=== PATIENT | female | born 1950 | race Caucasian/White ===

== ENCOUNTER 2020-12-15 12:47 | Observation (INO) | payer MEDICARE, SELFPAY ==
[2020-12-15] VITALS (10 sets, daily range): BP systolic 103–155; BP diastolic 62–78; PULSE 73–98; RESP 16–20; TEMP 36.5–37.4; O2SAT 97–100; BMI 22.1; BMI 24.5
--- NOTE | ~2020-12-15 | US_ITS ---
EXAMINATION: US carotid duplex BI EXAM DATE: 12/16/2020 10:22 INDICATION: Transient confusion yesterday. TECHNIQUE: Grayscale, color and pulsed Doppler images of the cervical carotid arteries were obtained . The degree of vessel stenosis is placed in one of the following categories: normal, <50% stenosis, 50-69% stenosis, >=70% stenosis but less than near-occlusion, near-occlusion, or occlusion. Note that percent stenosis relative to normal distal artery lumen diameter is indirectly measured from velocit y measurements as described by Westley, et al. Radiology 2003; 229:340-346. There is no prior study fo r comparison. FINDINGS: RIGHT SIDE: Right common carotid artery peak systolic velocity (PSV in cm/s): 113 Right bulb/internal carotid artery peak systolic velocity (PSV in cm/s): 112 Right internal carotid artery end diastolic velocity (EDV in cm/s): 43 Right ICA/CCA peak systolic ratio: 1.0 Right external carotid artery peak systolic velocity (PSV in cm/s): 81 Right vertebral artery antegrade flow: yes There is mild carotid bulb plaque. Velocity and Doppler waveforms in the common and internal carotid arteries is normal. LEFT SIDE: Left common carotid artery peak systolic velocity (PSV in cm/s): 99 Left bulb/internal carotid artery peak systolic velocity (PSV in cm/s): 98 Left internal carotid artery end diastolic velocity (EDV in cm/s): 32 Left ICA/CCA peak systolic ratio: 1.0 Left external carotid artery peak systolic velocity (PSV in cm/s): 93 Left vertebral artery antegrade flow: yes There is mild carotid bulb plaque. Velocity and Doppler waveforms in the common and internal carotid arteries is normal. IMPRESSION: 1. Less than 50 percent stenosis in the right internal carotid artery. 2. Less than 50 percent stenosis in the left internal carotid artery. Reviewed, dictated and finalized at location A.
--- NOTE | ~2020-12-15 | MR_ITS ---
EXAMINATION: MR brain/brain stem wo/w con EXAM DATE: 12/16/2020 10:12 INDICATION: Amnesia, confusion. TECHNIQUE: Magnetic resonance imaging (MRI) of the brain/brain stem obtained without contrast. Sagit haim T1, axial diffusion, gradient echo (T2*), T1, T2, FLAIR sequences obtained. Patient was then inj ected with 13 cc intravenous Multihance contrast. Axial and coronal postcontrast T1 weighted sequence s obtained. Comparison is made to prior examination from 12/15/2020. FINDINGS: There are no areas of restricted diffusion to suggest acute infarction. There is no acute hemorrhage seen on the T2*, a hemosiderin sensitive sequence. No intraparenchymal brain mass lesion. There is mild periventricular and subcortical T2/FLAIR signal hyperintensity, nonspecific but probab ly related to small vessel ischemic disease (microangiopathy). There are no extra-axial collections . Flow voids are seen in the cerebral arteries on the T2-weighted sequences consistent with their ex pected patency. The orbits are unremarkable. Soft tissue is unremarkable. There are no areas of ab normal enhancement on the postcontrast images. IMPRESSION: 1. No acute intracranial findings. 2. Mild microangiopathy. Reviewed, dictated and finalized at location A.
--- NOTE | ~2020-12-15 | CT_ITS ---
EXAMINATION: CT brain wo con EXAM DATE: 12/15/2020 13:43 INDICATION: Confusion . TECHNIQUE: Spiral CT of the head was performed without contrast. Axial, coronal and sagittal images were reviewed. The dose-length product (DLP) for this examination was 605.33 mGy-cm. The exposure w as tailored according to patient size, and iterative reconstruction (ASIR) was used as additional dos e reduction technique. There is no prior study for comparison. FINDINGS: There is no acute intraparenchymal hemorrhage. No evidence of intraparenchymal brain mass lesion. No evidence of acute infarction. There is no mass effect or midline shift. The ventricles are normal in size. There are no extra-axial collections. There are no acute calvarial fractures. P atzackary has had bilateral ocular lens surgery. Soft tissue is unremarkable. The visualized sinuses a nd mastoid air cells are well aerated. IMPRESSION: 1. No acute intracranial findings. Reviewed, dictated and finalized at location A.
--- NOTE | 2020-12-15 12:48 | ECG_ITS ---
Measurements Intervals [place] Rate: 82 P: 58 [place]: 157 QRS: -49 QRSD: 101 T: 48 QT: 337 QTc: 395 Interpretive Statements SINUS RHYTHM LEFT ANTERIOR FASCICULAR BLOCK ABNORMAL ECG Electronically Signed On 12-15-2020 17:49:00 CDT by Gino Calderon D.O.
--- NOTE | 2020-12-15 13:17 | ED.AMS ---
HPI - Altered Mental Status General Chief Complaint: Altered Mental Status Stated Complaint: confusion Time Seen by Provider: 12/15/20 12:58 Source: patient Limitations: no limitations History of Present Illness HPI narrative: Patient 70 years old white female brought to the emergency room by her granddaughter who is telling me that they were sitting talking together as usual suddenly patient started getting confused asking the same question again and again, does not remember what happened in the last few days,. Patient denies any tingling, numbness or focal weakness or headache. The granddaughter and patient denies that the patient had history of similar symptoms. History of hypertension, hypothyroidism. The granddaughter is telling me that patient had quite a bit of stress lately, she been taking care of 2 young grandkids and dog because everybody went to vacation. Currently patient feeling anxious and nervous. Patient does not smoke or drink or uses drugs Related Data Home Medications Medication Instructions Recorded Confirmed calcium carbonate 600 mg (1,500 cap PO 06/28/19 mg)-vitamin D3 500 unit capsule cetirizine 10 mg tablet 5 mg PO DAILY PRN 06/28/19 cholecalciferol (vitamin D3) 100 4,000 unit PO DAILY 06/28/19 mcg (4,000 unit) capsule fluticasone propionate 50 2 spray NASAL DAILY 06/28/19 mcg/actuation nasal spray,suspension multivitamin with [id number] tablet PO 06/28/19 400 mcg-120 mg tablet Allergies Allergy/AdvReac Type Severity Reaction Status Date / Time NSAIDS (Non-Steroidal Allergy Unknown Unknown Verified 12/15/20 12:52 Anti-Inflamma montelukast AdvReac Dizziness Verified 12/15/20 12:52 Review of Systems Review of Systems: Narrative: CONSTITUTIONAL: Denies fever, chills, or sweats. EYES: Denies visual changes, redness, or discharge. ENT: Denies rhinorrhea, congestion, sore throat, or otalgia. CARDIOVASCULAR: Denies chest pain, palpitations, or edema. RESPIRATORY: Denies cough or dyspnea. GASTROINTESTINAL: Denies abdominal pain, nausea, vomiting, or diarrhea. GENITOURINARY: Denies dysuria or hematuria. SKIN: Denies rash or itching. MUSCULOSKELETAL: Denies back pain, joint pain, or myalgia. NEUROLOGIC: Denies headache, numbness, or weakness. PSYCHIATRIC: Denies anxiety or depression. [facility] Surgical History Surgical History Cystocele History of D&C Status post cataract extraction Status post hysterectomy with oophorectomy Family History Family History Mother Family history of Parkinson's disease Family history of Alzheimer's disease Father Family history of coronary artery disease Other Family history of multiple sclerosis Social History Social History Smoking status: Never smoker Tobacco type: cigarettes Second hand tobacco smoke exposure: No Alcohol intake: never Substance use: never Substance use type: does not use Gender identity (if verbalized by the patient): Female Exam Narrative: Exam Narrative: General appearance: Well-developed, well-nourished Skin: Normal color Head: Normocephalic, nontraumatic Eyes: Clear conjunctiva ENT: Oropharynx normal, ears normal, nose normal Neck: Supple, nontender Chest and respiratory: Airway patent, no respiratory distress, no accessory muscle use Heart: Regular rate/rhythm Abdomen: Soft, nontender, no organomegaly, quiet bowel sounds Vascular: Normal peripheral pulses, normal capillary refill. Musculoskeletal: Normal range of motion, nontender back Neurologic: Alert and oriented to her name and age only.
[2020-12-15 13:24] LABS: Basophils Absolute Auto 0.1 K/mm3 (0.0-0.1); Basophils Percent Auto 0.7 % (0.2-1.2); Eosinophils Absolute Auto 0.1 K/mm3 (0-0.3); Eosinophils Percent Auto 1.7 % (0-4.4); Hematocrit 42.8 % (37.0-47.0); Hemoglobin 14.2 g/dL (12.0-15.0); Immature Granulocyte Absolute 0.01 K/mm3 (0.00-0.031); Immature Granulocyte Percent A 0.1 % (0-0.5); Lymphocytes Absolute Auto 2.03 K/mm3 (0.9-3.2); Lymphocytes Percent Auto 28.5 % (18.3-44.2); Mean Corpuscular HGB Conc 33.2 g/dl (32-36); Mean Corpuscular Hemoglobin 30.9 pg (26-34); Mean Corpuscular Volume 93.2 fl (80-100); Monocytes Absolute Auto 0.7 K/mm3 (0.1-0.6); Monocytes Percent Auto 10.4 % (2.6-8.5); Neutrophils Absolute Auto 4.2 K/mm3 (1.3-6.7); Neutrophils Percent Auto 58.6 % (45.5-73.1); Platelet Count Result 267 k/mm3 (150-375); Red Blood Count 4.59 M/mm3 (4.2-5.4); Red Cell Distribution Width 13.2 % (11.5-14.5); White Blood Count 7.1 K/mm3 (4.5-10.0)
[2020-12-15 13:27] LABS: Add Urine Microscopic? YES; Appearance Urine Cloudy (Clear); Bilirubin Urine Negative (Negative); Blood Urine Negative (Negative); Color Urine Amber (Yellow); Glucose Urine UA Negative (Negative); Ketones Urine Trace mg/dL (Negative); Leukocyte Esterase Ur Negative LEU/UL (Negative); Nitrate Urine Negative (Negative); Protein Urine Negative (Negative); RBC Urine 0-2 /hpf (0-2); Specific Grav Ur 1.015 (1.001-1.035); Squamous Epithelial Cell Urine Rare /hpf (Few); Urobilinogen Urine Negative mg/dL (<2.0); WBC Urine 0-3 /hpf
[2020-12-15 13:41] LABS: Alanine Aminotransferase 20 U/L (4-35); Albumin Level 4.6 g/dL (3.5-5.1); Alkaline Phosphatase 75 U/L (38-126); Anion Gap 9 mmol/L (8-16); Aspartate Amino Transferase 33 U/L (14-36); Bilirubin,Total 0.5 mg/dL (0.2-1.3); Blood Urea Nitrogen 20 mg/dL (7-17); Calcium 9.7 mg/dL (8.4-10.2); Carbon Dioxide 26 mmol/L (22-30); Chloride 100 mmol/L (98-107); Estimated CRCL calculation 56 ml/min; Estimated Glomerular Filt Rate > 60; Glucose 96 mg/dL (65-105); Potassium 3.8 mmol/L (3.4-5.0); Sodium 135 mmol/L (137-145)
--- NOTE | 2020-12-15 13:43 | PC.NURSE ---
Called Sepideh oquendo, added on TSH [id number]
[2020-12-15 14:32] LABS: Amphetamine Screen Urine Negative (Negative); Barbiturate Screen Urine Negative (Negative); Benzodiazepines Screen Urine Negative (Negative); Cannabinoid Screen Urine Negative (Negative); Cocaine Screen Urine Negative (Negative); Methadone Screen Urine Negative (Negative); Opiate Screen Urine Negative (Negative); Phencyclidine Screen Urine Negative (Negative)
--- NOTE | 2020-12-15 15:31 | PC.NURSE ---
called lab and spoke with Lorena to add on TSH at 1530
--- NOTE | 2020-12-15 17:53 | PC.NURSE ---
This patient, Tati Curry, was admitted to [address] [place] [address] Room 305-01. Patient/family oriented to hospital policies and general routines including ID bracelet, bed and alarms, visiting hours, pain management, procedures, bathroom and other care routines, personal items, smoking policy, room service/diet, and visiting hours. Information on how to activate the Rapid Response Team has been discussed. Patient/Family are encouraged to report perceived risks to care and to ask questions if they do not understand what they are told or what they should do.
--- NOTE | 2020-12-15 21:58 | PM.IMHP ---
H&P: HPI History of Present Illness Date/Time: 12/15/20 21:58 this is a 70-year-old female patient who has no medical history. The patient had been under lot of stress lately. She recently went on a vacation and had to cut her vacation short because she has severe allergy. She had severe eye irritation. She recently had to watch her 2 grandchildren who are 8 and 6 years old. The granddaughter that is with her today(20-year-old) typically lives with her. However the 20-year-old granddaughter had been on vacation for couple days and just came back the last 2 days. The granddaughter noticed that Tati was not acting like her normal self. The patient had been drinking [employer] the last 2 days and thought that maybe that had something to do with that. The patient cannot recall what happened while she was watching the 2 little girls and she keeps repeating herself. This happen all of a sudden today. The patient stated she felt like she has been under lot of stress recently. The patient does not have any focal weakness no facial droop or any slurred speech. She denies having any difficulty swallowing. The patient fears that she may be developing dementia. The patient tells me that she does not have any medical problems and she is not on any medications however I did review her medication list it looks like she possibly has high blood pressure and hypothyroidism. Her labs are unremarkable her and her head CT was read as no acute intracranial finding. The granddaughter that that the bedside stated that her mother was getting better than what she was earlier today. The patient had a conversation with the granddaughter earlier this morning and the patient could not recall what they were talking about and does not remember anything over the last couple days. The patient is being admitted to observation status on the date of service of 12/15/2020 Chief Complaint: Amnesia Review of Systems Review of Systems: All systems reviewed & are unremarkable except as noted in HPI and below Constitutional: Constitutional: Reports as per HPI and Reports no additional constitutional complaints Eyes: Eyes: Reports as per HPI and Reports no additional eye complaints ENT: Reports system reviewed and no additional complaints, except as documented and Reports Normal hearing present Cardiovascular: Cardiovascular: Reports no additional cardiovascular complaints Respiratory: Respiratory: Reports no additional respiratory complaints and Reports no additional respiratory complaints Gastrointestinal: Gastrointestinal: Reports as per HPI and Reports no additional gastrointestinal complaints Musculoskeletal: Musculoskeletal: Reports no additional musculoskeletal complaints Integumentary/Breasts: Skin/Breast: Reports system reviewed and no additional complaints, except as docu and Reports as per HPI Neurologic: Reports system reviewed and no additional complaints, except as documented, Reports as per HPI and Reports Normal hearing present Psychiatric: Psychiatric: Reports no additional psychiatric complaints and Reports as per HPI Endocrine: Endocrine: Reports no additional endocrine complaints Hematologic/Lymphatic: Hematologic/Lymphatic: Reports no additional hematologic/lymphatic complaints Allergic/Immunologic: Allergic/Immunologic: Reports no additional allergic/immunologic complaints [facility] Past Medical History Medical History (Updated 12/15/20 @ 22:23 by Kareen Shetty NP) HLD (hyperlipidemia) Hypothyroidism Seasonal allergies Surgical History Surgical History (Updated 12/15/20 @ 22:08 by Kareen Shetty NP) Cystocele History of D&C Multiple Status post cataract extraction Multiple surgeries to her eyes with loss of 30% peripheral vision on the left eye Status post hysterectomy with oophorectomy Family History Family History (Updated 12/15/20 @ 22:13 by Kareen Shetty NP) Mother Family history of Parkinson's disease Family history
[2020-12-15] MEDS: PILOCARPINE HCL 2% OP SOLN 15 ML BTL 1 DROP EACH EYE (23:29)
[2020-12-15] MEDS: ACETAMINOPHEN 325 MG TABLET 650 MG PO (23:29)
[2020-12-16] VITALS (9 sets, daily range): BP systolic 90–124; BP diastolic 56–71; PULSE 57–82; RESP 16–18; TEMP 36.3–36.6; O2SAT 97–98
[2020-12-16] MEDS: LEVOTHYROXINE SODIUM 75 MCG TABLET BY MOUTH (06:02)
[2020-12-16 06:25] LABS: Basophils Percent Auto 0.6 % (0.2-1.2); Eosinophils Absolute Auto 0.2 K/mm3 (0-0.3); Eosinophils Percent Auto 2.1 % (0-4.4); Hematocrit 38.9 % (37.0-47.0); Immature Granulocyte Absolute 0.01 K/mm3 (0.00-0.031); Immature Granulocyte Percent A 0.1 % (0-0.5); Lymphocytes Absolute Auto 2.28 K/mm3 (0.9-3.2); Lymphocytes Percent Auto 32.4 % (18.3-44.2); Mean Corpuscular HGB Conc 33.4 g/dl (32-36); Mean Corpuscular Hemoglobin 30.5 pg (26-34); Mean Corpuscular Volume 91.3 fl (80-100); Mean Platelet Volume 9.9 fl (7.4-10.4); Monocytes Absolute Auto 0.7 K/mm3 (0.1-0.6); Monocytes Percent Auto 9.9 % (2.6-8.5); Neutrophils Absolute Auto 3.9 K/mm3 (1.3-6.7); Neutrophils Percent Auto 54.9 % (45.5-73.1); Platelet Count Result 241 k/mm3 (150-375); Red Blood Count 4.26 M/mm3 (4.2-5.4); Red Cell Distribution Width 13.2 % (11.5-14.5)
[2020-12-16 06:39] LABS: Alanine Aminotransferase 17 U/L (4-35); Albumin Level 4.1 g/dL (3.5-5.1); Alkaline Phosphatase 56 U/L (38-126); Anion Gap 7 mmol/L (8-16); Aspartate Amino Transferase 30 U/L (14-36); Bilirubin,Total 0.5 mg/dL (0.2-1.3); Blood Urea Nitrogen 18 mg/dL (7-17); Calcium 9.5 mg/dL (8.4-10.2); Carbon Dioxide 28 mmol/L (22-30); Chloride 107 mmol/L (98-107); Estimated CRCL calculation 56 ml/min; Estimated Glomerular Filt Rate > 60; Glucose 97 mg/dL (65-105); Magnesium 2.1 mg/dL (1.6-2.3); Potassium 3.9 mmol/L (3.4-5.0); Sodium 142 mmol/L (137-145)
[2020-12-16] MEDS: THERAPEUTIC MULTIVITAMINS/MINERALS TAB (*BKC) 1 TABLET PO (08:50)
[2020-12-16] MEDS: CLOPIDOGREL BISULFATE 75 MG TABLET PO (08:50)
[2020-12-16] MEDS: FLUTICASONE PROPIONATE 0.05% NA SPR 16 GM BTL (*BKC) 2 SPRAY NASAL (08:50)
[2020-12-16] MEDS: CHOLECALCIFEROL 1,000 UNITS TABLET 4000 UNITS PO (08:51)
[2020-12-16] MEDS: lisinopriL 20 MG TABLET PO (08:51)
[2020-12-16] MEDS: PILOCARPINE HCL 2% OP SOLN 15 ML BTL 1 DROP EACH EYE ×2 (08:51→20:44)
--- NOTE | 2020-12-16 15:54 | PM.IMPN ---
Progress Note: A&P Assessment and Plan (1) TGA (transient global amnesia): Code(s): G45.4 - Transient global amnesia Status: Acute Assessment and Plan: The patient has amnesia about some the events that occurred over the last couple days. Being working up for early dementia. AWaiting MRI scan. (2) Essential (primary) hypertension: Code(s): I10 - Essential (primary) hypertension Status: Chronic Assessment and Plan: Continue with her quinapril. (3) Hypothyroidism: Code(s): E03.9 - Hypothyroidism, unspecified Status: Chronic Assessment and Plan: Check thyroid level continue with her levothyroxine. (4) HLD (hyperlipidemia): Code(s): E78.5 - Hyperlipidemia, unspecified Status: Chronic Assessment and Plan: Continue with her home medication. (5) Seasonal allergies: Code(s): J30.2 - Other seasonal allergic rhinitis Status: Chronic Assessment and Plan: Continue with home medication. Subjective Date/time seen: 12/16/20 15:54 Interval history: 70-year-old female patient who has no medical history. The patient had been under lot of stress lately. She recently went on a vacation and had to cut her vacation short because she has severe allergy. She had severe eye irritation. She recently had to watch her 2 grandchildren who are 8 and 6 years old. Pt is being worked up for amnesia, awaiting MRI. Review of Systems Review of Systems: All systems reviewed & are unremarkable except as noted in HPI and below Exam Const: General: cooperative, healthy appearing, comfortable, no acute distress, well developed, alert, awake and Physically active Nutritional Appearance: average body habitus and well nourished Orientation/consciousness: oriented to person, oriented to place, oriented to time and patient oriented x3 Limitations: no limitations Chest: Chest palpation & inspection: normal inspection of the chest Resp: Effort & Inspection: normal respiratory effort Auscultation: clear to auscultation bilaterally Percussion: percussion normal Cardio: Palpation: normal PMI Rate: regular rate Rhythm: regular rhythm Heart sounds: S1 normal heart sound present and S2 normal heart sound present Peripheral pulses: Peripheral pulses 2+ throughout Skin: General skin exam: normal color Lesions: no lesions Rashes: no rashes Trauma: no lacerations or abrasions Wounds: no wounds Hair: normal Nails: normal Extrem: General: normal to inspection Right upper extremity: normal to inspection Left upper extremity: normal to inspection Right lower extremity: normal to inspection Left lower extremity: normal to inspection Objective Data Vital Signs Vital Signs: Vital Signs - 24 hr 12/15/20 16:10 12/15/20 17:11 12/15/20 17:20 Temperature 37.4 C Pulse Rate 86 77 81 Respiratory Rate 20 20 16 Blood Pressure 120/70 112/66 120/66 Pulse Oximetry 98 99 99 12/15/20 18:38 12/15/20 20:00 12/15/20 22:00 Temperature 36.5 C Pulse Rate 81 98 73 Respiratory Rate 16 16 Blood Pressure 103/62 Pulse Oximetry 99 97 12/16/20 00:00 12/16/20 04:00 12/16/20 06:00 Temperature 36.3 C L Pulse Rate 72 69 75 Respiratory Rate 16 Blood Pressure 124/69 Pulse Oximetry 98 12/16/20 08:00 12/16/20 14:00 Temperature 36.3 C L Pulse Rate 75 82 Respiratory Rate 16 16 Blood Pressure 90/56 L Pulse Oximetry 98 98 Intake/Output Intake/Output: Intake & Output 12/13/20 12/14/20 12/15/20 12/16/20 23:59 23:59 23:59 23:59 Intake Total 490 480 Output Total 700 Balance 490 -220 Meds/Results Medications: Active Medications Generic Name Dose Route Start Last Admin Trade Name Freq PRN Reason Stop Dose Admin Acetaminophen 650 mg 12/15/20 22:00 12/16/20 08:50 Acetaminophen 325 Mg Tablet PO Not Given Q12HR OLAMIDE Artificial Tears 1 drop 12/15/20 21:59 Artificial Tears Op Soln 15 Ml Bottle EACH EYE BID PRN E
[2020-12-16] MEDS: ACETAMINOPHEN 325 MG TABLET 650 MG PO (20:44)
[2020-12-17] VITALS: PULSE 66
--- NOTE | 2020-12-17 | ECHO_ITS ---
Patient Info Name: Tati Curry Age: 70 years : 1950 Gender: Female Ht: 64 in Wt: 143 lbs BSA: 1.72 m2 HR: 82 bpm BP: 102 / 56 mmHg Technical Quality: Good Exam Date: 12/17/2020 1:54 PM Exam Location: [facility] Pulmonary Exam Room: 305 Patient Status: Outpatient Admit Date: 12/15/2020 Staff Ordering Physician: Kareen Shetty NP Testing And Regulating Technician: Ailyn Fitzgerald RCS Attending Provider: Daniela Viveros MD Referring Physician: Sena ARMENTA; Exam Type: CA echo doppler color flow Study Info Indications - confusion Complete two-dimensional, color flow and Doppler transthoracic echocardiogram is performed. Summary 1. Complete two-dimensional, color flow and Doppler transthoracic echocardiogram is performed. 2. Left ventricular chamber dimension is normal. 3. Left ventricular systolic function is normal, estimated at 60-65%. 4. The left ventricular diastolic function is grade I diastolic dysfunction. 5. E/e' 6 is not elevated. 6. There is trace tricuspid valve regurgitation. 7. No pulmonary hypertension, estimated pulmonary arterial systolic pressure is 31 mmHg. Left Ventricle E/e' 6 is not elevated. Left ventricular chamber dimension is normal. Left ventricular systolic function is normal, estimated at 60-65%. The left ventricular diastolic function is grade I diastolic dysfunction. Right Ventricle Right ventricular chamber dimension is normal. Right ventricular systolic function is normal. Left Atria Left atrial chamber dimension is normal. Right Atria Right atrial chamber dimension is normal. Aortic Valve The aortic valve is trileaflet. There is no aortic valve stenosis. There is no aortic valve regurgitation. Pulmonic Valve There is no pulmonic regurgitation. Mitral Valve There is no mitral valve stenosis. There is no mitral valve regurgitation. Tricuspid Valve There is trace tricuspid valve regurgitation. No pulmonary hypertension, estimated pulmonary arterial systolic pressure is 31 mmHg. Pericardium/Pleural There is no pericardial effusion. Inferior Vena Cava Normal inferior vena cava with >50% collapse upon inspiration consistent with normal right atrial pressure, 5 mmHg. Aorta The aortic root size at the sinus of Valsalva is normal. Left Ventricular Outflow Tract Name Value Normal LVOT 2D LVOT Diameter 2.0 cm LVOT Doppler LVOT Peak Gradient 5 mmHg LVOT Mean Gradient 3 mmHg LVOT VTI 23 cm LVOT VTI/AV VTI Ratio 0.9 LVOT Stroke Volume 74 ml LVOT CO 15.2 l/min LVOT CI 8.8 l/min/m2 Pulmonic Valve Name Value Normal PV Doppler PV Peak Gradient 2 mmHg Mi
[2020-12-17 04:00] VITALS: PULSE 60
[2020-12-17 05:32] VITALS: BP 102/56; PULSE 58; RESP 18; TEMP 36.3; O2SAT 98
[2020-12-17] MEDS: LEVOTHYROXINE SODIUM 75 MCG TABLET BY MOUTH (05:32)
[2020-12-17 08:00] VITALS: PULSE 79
[2020-12-17] MEDS: CHOLECALCIFEROL 1,000 UNITS TABLET 4000 UNITS PO (08:07)
[2020-12-17] MEDS: THERAPEUTIC MULTIVITAMINS/MINERALS TAB (*BKC) 1 TABLET PO (08:08)
[2020-12-17] MEDS: CLOPIDOGREL BISULFATE 75 MG TABLET PO (08:08)
[2020-12-17] MEDS: lisinopriL 20 MG TABLET PO (08:08)
[2020-12-17] MEDS: FLUTICASONE PROPIONATE 0.05% NA SPR 16 GM BTL (*BKC) 2 SPRAY NASAL (08:08)
[2020-12-17] MEDS: PILOCARPINE HCL 2% OP SOLN 15 ML BTL 1 DROP EACH EYE (08:09)
--- NOTE | 2020-12-17 13:12 | PM.DS ---
DS: Admitting Diagnosis Admitting Diagnosis Admitting Diagnosis: Amnesia DS: Discharge Diagnosis Discharge Diagnosis (1) TGA (transient global amnesia): Code(s): G45.4 - Transient global amnesia Status: Acute Assessment and Plan: The patient has amnesia about some the events that occurred over the last couple days. Being working up for early dementia. MRI scan is negative CT head is negative, US of carotids are negative, echo is pending. one event of confusion after [employer] no other episodes pt appears well no confusion or disorientation today. Holding conversation looks well (2) Essential (primary) hypertension: Code(s): I10 - Essential (primary) hypertension Status: Chronic Assessment and Plan: Continue with her quinapril. (3) Hypothyroidism: Code(s): E03.9 - Hypothyroidism, unspecified Status: Chronic Assessment and Plan: Check thyroid level continue with her levothyroxine. (4) HLD (hyperlipidemia): Code(s): E78.5 - Hyperlipidemia, unspecified Status: Chronic Assessment and Plan: Continue with her home medication. (5) Seasonal allergies: Code(s): J30.2 - Other seasonal allergic rhinitis Status: Chronic Assessment and Plan: Continue with home medication. DS: Summary Hospital Course Hospital Course: 70-year-old female patient who has no medical history. The patient had been under lot of stress lately. She recently went on a vacation and had to cut her vacation short because she has severe allergy. She had severe eye irritation. She recently had to watch her 2 grandchildren who are 8 and 6 years old. Pt is being worked up for amnesia, MRI negative, CT head negative, US carotids are negative. Time Spent with Patient Time attestation: Total time spent providing and/or coordinating discharge services:4 minutes on day of discharge Exam Const: General: cooperative, healthy appearing, comfortable, no acute distress, well developed, alert, awake and Physically active Nutritional Appearance: average body habitus and well nourished Orientation/consciousness: oriented to person, oriented to place, oriented to time and patient oriented x3 Limitations: no limitations HENMT: Head: normal to inspection, No palpable skull fracture present, normocephalic and atraumatic Ears: hearing grossly normal bilaterally and external ears normal General nose exam: Normal external nose present and Normal nares present Eyes: General: appearance normal, both eyes and all related structures Alignment and Position: alignment normal Periorbital: periorbital findings normal Eyelids: eyelids normal Conjunctivae: conjunctivae normal Sclera: sclerae normal Cornea: corneas normal Pupils: Equal, round and reactive pupils present EOM: EOMs intact bilaterally Neck: Neck: normal visual inspection, full ROM and no lymphadenopathy Carotids: normal carotid upstroke Lymphatic: no lymphadenopathy noted Chest: Chest palpation & inspection: normal inspection of the chest Resp: Effort & Inspection: normal respiratory effort Auscultation: clear to auscultation bilaterally Percussion: percussion normal Cardio: Palpation: normal PMI Rate: regular rate Rhythm: regular rhythm Heart sounds: S1 normal heart sound present and S2 normal heart sound present Peripheral pulses: Peripheral pulses 2+ throughout GI: Inspection: normal to inspection Auscultation: normal bowel sounds Back/Spine/Pelvis: Cervical Spine: cervical ROM normal Thoracic/Lumbar Spine: thoracic and lumbar spine normal to inspection Pelvis: no pain with anterior-posterior compression Skin: General skin exam: normal color Lesions: no lesions Rashes: no rashes Trauma: no lacerations or abrasions Wounds: no wounds Hair: normal Nails: normal Neuro: General: oriented to person, oriented to place, oriented to time and patient oriented x3 Cranial nerves: Yes Equal, round and reactive pupils present C
[2020-12-17 13:18] VITALS: BP 97/47; PULSE 80; RESP 14; TEMP 37.2; O2SAT 97
== END 2020-12-17 15:00 | disposition home or self-care (01) ==
LOC: ANHED 15:34 → ANH3MEDSUR 12-16 07:13
PROVIDERS: General Practice; Nurse Practitioner; Admitting Provider Hospitalist; Emergency Provider Emergency Medicine; PCP Family Medicine; Visit Provider Family Medicine
DX: G45.4 Transient global amnesia (principal); I10 Essential (primary) hypertension; E03.9 Hypothyroidism, unspecified; I65.23 Occlusion and stenosis of bilateral carotid arteries; E78.5 Hyperlipidemia, unspecified; J30.2 Other seasonal allergic rhinitis; Z79.899 Other long term (current) drug therapy
CPT/HCPCS: 36415; 70450; 70553; 80053; 80307; 81001; 83735; 84443; 85025; 93005; 93306; 93880; 99285; A9270; A9577; G0378

== ENCOUNTER 2020-12-31 08:09 | Outpatient (CLI) | payer MEDICARE, SELFPAY ==
--- NOTE | ~2020-12-31 | MM_ITS ---
EXAMINATION: MM screening eros BI w tari HISTORY: Screening mammogram TECHNIQUE: Craniocaudal and mediolateral oblique 3-D tomosynthesis images were obtained and synthetic 2-D images were generated. CAD analysis was submitted and interpreted. COMPARISON: 12/31/2018, 12/29/2017, 12/09/2016 bilateral digital screening mammogram examinations BREAST PARENCHYMAL COMPOSITION: There are scattered areas of fibroglandular density. FINDINGS: Approximately 2.8 x 5 mm circumscribed mass is noted in the lower outer right breast (crani ocaudal Tomosynthesis image 20/64). Diagnostic right mammogram and right breast ultrasound examinatio n are recommended. Otherwise there is no evidence of suspicious mass, calcification, or architectural distortion to sugg est malignancy in either breast. There has been no other suspicious interval change. IMPRESSION: 1. 2.8 x 5 mm circumscribed lower outer right breast mass 2. Diagnostic right mammogram and right breast ultrasound examination are recommended. BI-RADS Category 0: Incomplete: Needs additional imaging evaluation. Reviewed, dictated and finalized at location A. IMPRESSION: 1. 2.8 x 5 mm circumscribed lower outer right breast mass 2. Diagnostic right mammogram and right breast ultrasound examination are recom mended. BI-RADS Category 0: Incomplete: Needs additional imaging evaluation.
== END 2020-12-31 08:10 | disposition home or self-care (01) ==
LOC: ANHIMG 08:12
PROVIDERS: PCP Family Medicine; Visit Provider Family Medicine
DX: Z12.31 Encounter for screening mammogram for malignant neoplasm of breast (principal); R92.8 Other abnormal and inconclusive findings on diagnostic imaging of breast
CPT/HCPCS: 77063; 77067

== ENCOUNTER 2021-01-31 13:42 | Outpatient (CLI) | payer MEDICARE, SELFPAY ==
--- NOTE | ~2021-01-31 | MMUS_ITS ---
EXAMINATION: MM diagnostic mammo unilat RT, US breast RT limited HISTORY: Follow-up right breast mass TECHNIQUE: Additional 3-D tomosynthesis images of the right breast were performed and synthetic 2-D i mages were generated. CAD analysis was submitted and interpreted. High resolution Limited right breas t ultrasound was performed. COMPARISON: 12/31/2020 BREAST PARENCHYMAL COMPOSITION: Breast composed of scattered areas of fibroglandular density. FINDINGS: MAMMOGRAPHIC FINDINGS: There is a persistent radiolucent mass measuring 4 mm in the upper outer quadrant of the right breast which is less dense with spot compression views, likely benign intramammary lymph node. ULTRASOUND: Limited right breast ultrasound: Normal heterogeneous echotexture. No focal mass identified. IMPRESSION: 1. Probable benign right breast mass. No sonographic correlate. 2. Recommend 6 month follow-up diagnostic right mammogram BI-RADS category 3, probably benign findings. Reviewed, dictated and finalized at location A. IMPRESSION: 1. Probable benign right breast mass. No sonographic correlate. 2. Recommend 6 month follow-up diagnostic right mammogram BI-RADS category 3, probably benign findings.
== END 2021-01-31 13:43 | disposition home or self-care (01) ==
PROVIDERS: PCP Family Medicine; Visit Provider Nurse Practitioner Family
DX: R92.8 Other abnormal and inconclusive findings on diagnostic imaging of breast (principal); N63.10 Unspecified lump in the right breast, unspecified quadrant
CPT/HCPCS: 76642; 77065

== ENCOUNTER 2021-08-30 11:00 | Outpatient (CLI) | payer MEDICARE, SELFPAY ==
--- NOTE | ~2021-08-30 | MM_ITS ---
EXAMINATION: MM diagnostic eros RT w tari HISTORY: Follow-up right breast asymmetry TECHNIQUE: Additional 3-D tomosynthesis images of the right breast were performed and synthetic 2-D i mages were generated. CAD analysis was submitted and interpreted. COMPARISON: Comparison to multiple prior studies sequentially, with oldest reviewed study dated 12/09. BREAST PARENCHYMAL COMPOSITION: Breast composed of scattered areas of fibroglandular density. FINDINGS: There are no suspicious masses, calcifications or architectural distortion in the right trevor ast to suggest malignancy. IMPRESSION: 1. Stable right mammogram without evidence for malignancy. 2. Routine yearly screening mammogram and regular clinical breast examination are recommended. BI-RADS Category 1: Negative Reviewed, dictated and finalized at location A. RTMENT CLERK IMPRESSION: 1. Stable right mammogram without evidence for malignancy. 2. Routine yearly screening mammogram and regular clinical breast examination a re recommended. BI-RADS Category 1: Negative
== END 2021-08-30 11:01 | disposition home or self-care (01) ==
PROVIDERS: PCP Family Medicine; Visit Provider Nurse Practitioner Family
DX: R92.8 Other abnormal and inconclusive findings on diagnostic imaging of breast (principal)
CPT/HCPCS: 77061; 77065; G0279

== ENCOUNTER 2021-08-30 15:11 | Outpatient (CLI) | payer MEDICARE, SELFPAY ==
--- NOTE | ~2021-08-30 | XR_ITS ---
XR facial bones min 3V DATE: 08/30/2021 15:52 INDICATION: Fall, facial injury on 08/31/2021 TECHNIQUE: clay Hurtado, lateral and submental vertical views COMPARISON: None FINDINGS: The nasal bones, anterior maxillary spine and zygomatic arches appear intact. The frontozyg omatic sutures appear normal. No orbital wall or rim fracture or other facial fracture is evident. No mandibular fracture or dislocation is detected. The paranasal sinuses are normally developed and aerated. The mastoid air cells appear normal. Normal sella turcica. Moderate degenerative change of the cervical spine. IMPRESSION: No evidence of facial fracture. Reviewed, dictated and finalized at location B. US PICKER
--- NOTE | ~2021-08-30 | XR_ITS ---
XR wrist RT min 3V DATE: 08/30/2021 15:53 INDICATION: Fall on August 21. Right wrist injury, pain TECHNIQUE: 4 views COMPARISON: None FINDINGS: Diffuse osteopenia. There is narrowing at the radiocarpal joint likely due to osteoarthritis. Degenerative benign cyst of the distal ulna. No fracture or dislocation, erosive change or chondrocalcinosis. IMPRESSION: No fracture or dislocation is detected Reviewed, dictated and finalized at location B. OGRAPHIC MACHINE OPERATOR
== END 2021-08-30 15:12 | disposition home or self-care (01) ==
LOC: ANHIMG 15:17
PROVIDERS: PCP Family Medicine; Visit Provider Physician Assistant
DX: Z91.81 History of falling (principal); R51.9 Headache, unspecified; H57.11 Ocular pain, right eye; M25.531 Pain in right wrist; M47.812 Spondylosis without myelopathy or radiculopathy, cervical region
CPT/HCPCS: 70150; 73110; 77061; 77065; G0279

== ENCOUNTER 2021-09-09 12:47 | Outpatient (CLI) | payer MEDICARE, SELFPAY ==
--- NOTE | ~2021-09-09 | CT_ITS ---
EXAMINATION: CT brain wo con, CT cervical spine wo con EXAM DATE: 09/09/2021 13:15 INDICATION: Hit right side of head on August 21. Headache and dizziness. TECHNIQUE: Spiral CT of the head was performed without contrast. Axial, coronal and sagittal images were reviewed. Spiral CT of the cervical spine was performed without contrast. Axial images were rev iewed. Coronal and sagittal reformatted images were also reviewed. The dose-length product (DLP) fo r this examination was 529.67 (accession [id number]), 101.07 (accession [id number]) mGy-cm. The exposure was tailored according to patient size, and iterative reconstruction (ASIR) was used as additional dose reduction technique. Comparison is made to prior examination from 12/15/2020. FINDINGS: HEAD CT: There is no acute intraparenchymal hemorrhage. No evidence of intraparenchymal brain mass l esion. No evidence of acute infarction. There is no mass effect or midline shift. There is no obs tructive hydrocephalus suspected. There are no extra-axial collections. There are no acute calvaria l fractures. Patient has had bilateral ocular lens surgery. Soft tissue is unremarkable. The visua lized sinuses and mastoid air cells are well aerated. CERVICAL CT: Overall moderate cervical spondylosis. There is no evidence of acute cervical fracture. The odontoid process is intact. Pre-dens space is normal. Prevertebral soft tissue is normal. The re are no soft tissue abnormalities identified. There is no disc space widening or traumatic vertebr al body subluxation suspected. A detailed level by level evaluation of spondylosis can be added as addendum if requested. IMPRESSION: 1. No acute intracranial findings or cervical fracture. 2. Moderate cervical spondylosis. Reviewed, dictated and finalized at location B. OON DIPPER IMPRESSION: 1. No acute intracranial findings or cervical fracture. 2. Moderate cervical spondylosis.
== END 2021-09-09 12:48 | disposition home or self-care (01) ==
LOC: ANHIMG 12:51
PROVIDERS: PCP Family Medicine; Visit Provider Physician Assistant
DX: S09.90XA Unspecified injury of head, initial encounter (principal); H57.11 Ocular pain, right eye; W19.XXXA Unspecified fall, initial encounter; M47.812 Spondylosis without myelopathy or radiculopathy, cervical region
CPT/HCPCS: 70450; 72125

== ENCOUNTER 2021-10-10 12:41 | Outpatient (CLI) | payer MEDICARE, SELFPAY ==
--- NOTE | ~2021-10-10 | DEXA_ITS ---
Bone Density Report Name: LACIE GARCIA Age: 71 Sex: Female Ethnicity: White Date of : 1950 Indication: osteopenia; monitoring treatment; parental hip fracture; height loss; hysterectomy; postmenopausal Referring Provider: BLAKE RAYMUNDO Study: Bone densitometry was performed. Exam Date: October 10, 2021 Accession number: [id number] Bone Density: Region BMD T-score Z-score Classification AP Spine (L1-L4) 0.758 -2.6 -0.4 Osteoporosis Femoral Neck (Left) 0.735 -1.0 0.8 Normal Total Hip (Left) 0.762 -1.5 0.1 Osteopenia Total Hip Bilateral Avg 0.767 -1.5 0.2 Osteopenia Femoral Neck (Right) 0.650 -1.8 0.1 Osteopenia Total Hip (Right) 0.771 -1.4 0.2 Osteopenia World Health Organization criteria for BMD impression classify patients as: Normal (T-score at or above -1.0), Osteopenia (T-score between -1.0 and -2.5), or Osteoporosis (T-score at or below -2.5). 10-year Fracture Risk: FRAX not reported because: Some T-score for Spine Total or Hip Total or Femoral Neck at or below -2.5 Treated for osteoporosis Previous Exams: Region Exam Age BMD T-score BMD Change BMD Change Date g/cm2 vs Baseline vs Previous AP Spine(L1-L4) 10/10/2021 71 0.758 -2.6 -0.085(-10.0%) -0.072(-8.7%)* 01/16/2018 67 0.831 -2.0 -0.012(-1.5%)# 0.015(1.8%) 12/06/2015 65 0.816 -2.1 -0.027(-3.2%)# -0.027(-3.2%)# 12/01/2013 63 0.843 -1.9 Total Hip(Left) 10/10/2021 71 0.762 -1.5 -0.142(-15.7%) -0.128(-14.3%) 01/16/2018 67 0.890 -0.4 -0.015(-1.6%)# 0.014(1.7%) 12/06/2015 65 0.875 -0.5 -0.029(-3.2%)# -0.029(-3.2%)# 12/01/2013 63 0.904 -0.3 Total Hip(Right) 10/10/2021 71 0.771 -1.4 -0.085(-9.9%)# -0.092(-10.7%) 01/16/2018 67 0.864 -0.6 0.007(0.8%)# 0.024(2.8%) 12/06/2015 65 0.840 -0.8 -0.016(-1.9%)# -0.016(-1.9%)# 12/01/2013 63 0.856 -0.7 *Denotes significance at 95% confidence level, LSC for AP Spine = 0.022 g/cm2, LSC for Total Hip = 0.027 g/cm2 Clinical Information Provided by Patient: Parent has had a hip fracture Is being treated for osteoporosis Has used the following medications: Boniva (i.e. ibandronate), Vitamin D, Calcium Has the following medical conditions: Hysterectomy Patient maximum height was 65 Menopause Age: 50 Onset of menses at age 15 Number of children 4 Impression: The patient has osteoporosis, based on the Total Spine T-score. The patient has risk factors, including: parental hip fr
== END 2021-10-10 12:42 | disposition home or self-care (01) ==
PROVIDERS: PCP Family Medicine; Visit Provider Family Medicine
DX: Z78.0 Asymptomatic menopausal state (principal); M81.0 Age-related osteoporosis without current pathological fracture; M85.89 Other specified disorders of bone density and structure, multiple sites
CPT/HCPCS: 77080

== ENCOUNTER 2022-02-06 10:34 | Outpatient (CLI) | payer MEDICARE, SELFPAY ==
--- NOTE | ~2022-02-06 | MM_ITS ---
EXAMINATION: MM screening eros BI w tari HISTORY: Screening mammogram TECHNIQUE: Craniocaudal and mediolateral oblique 3-D tomosynthesis images were obtained and synthetic 2-D images were generated. CAD analysis was submitted and interpreted. COMPARISON: 08/30/2021 diagnostic right mammogram 01/31/2021 diagnostic right mammogram and limited right breast ultrasound 12/31/2020, 12/31/2018 bilateral screening mammogram examinations BREAST PARENCHYMAL COMPOSITION: There are scattered areas of fibroglandular density. FINDINGS: There is no evidence of suspicious mass, calcification, or architectural distortion to sugg est malignancy in either breast. There has been no suspicious interval change. IMPRESSION: 1. No mammographic evidence of malignancy. 2. Recommend routine screening mammography in one year. BI-RADS Category 1: Negative Reviewed, dictated and finalized at location A.
== END 2022-02-06 10:35 | disposition home or self-care (01) ==
PROVIDERS: PCP Family Medicine; Visit Provider Family Medicine
DX: Z12.31 Encounter for screening mammogram for malignant neoplasm of breast (principal); N63.10 Unspecified lump in the right breast, unspecified quadrant
CPT/HCPCS: 77063; 77067

== ENCOUNTER 2023-04-16 07:13 | Outpatient (CLI) | payer MEDICARE, SELFPAY ==
--- NOTE | ~2023-04-16 | MM_ITS ---
EXAMINATION: MM screening eros BI w tari HISTORY: Screening mammogram TECHNIQUE: Craniocaudal and mediolateral oblique 3-D tomosynthesis images were obtained and synthetic 2-D images were generated. CAD analysis was submitted and interpreted. COMPARISON: 02/06/2022, 12/31/2020, 12/31/2018 BREAST PARENCHYMAL COMPOSITION:There are scattered areas of fibroglandular density. FINDINGS: No suspicious mass, calcification, or architectural distortion are identified in either trevor ast to suggest malignancy. There has been no suspicious interval change. IMPRESSION: No mammographic evidence of malignancy. Recommend routine screening mammography in one year. BI-RADS Category 1: Negative Reviewed, dictated and finalized at location .
== END 2023-04-16 07:14 | disposition home or self-care (01) ==
PROVIDERS: PCP Family Medicine; Visit Provider Family Medicine
DX: Z12.31 Encounter for screening mammogram for malignant neoplasm of breast (principal)
CPT/HCPCS: 77063; 77067

== ENCOUNTER → 2023-07-03 10:14 | Outpatient (CLI) | payer MEDICARE, SELFPAY ==
--- NOTE | ~2023-07-03 | XR_ITS ---
Left elbow Technique: AP, oblique, and lateral views were obtained. Clinical History: Pain Findings: No acute fracture or dislocation is seen. Osseous alignment is anatomic. Joint spaces are p reserved. There is no displacement of the fat pads, and soft tissues are unremarkable. Impression: Unremarkable radiographs. Reviewed, dictated and finalized at [facility]. RGLASS INSULATION INSTALLER Impression: Unremarkable radiographs.
== END ==
PROVIDERS: PCP Physician Assistant; Visit Provider Physician Assistant
DX: M25.522 Pain in left elbow (principal)
CPT/HCPCS: 73080

== ENCOUNTER 2023-10-16 09:17 | Outpatient (CLI) | payer MEDICARE, SELFPAY ==
--- NOTE | ~2023-10-16 | DEXA_ITS ---
Bone Density Report Name: LACIE GARCIA Age: 73 Sex: Female Ethnicity: White Date of : 1950 Indication: osteopenia; monitoring treatment; parental hip fracture; height loss; prior fracture; hysterectomy; Referring Provider: BLAKE ALBA Study: Bone densitometry was performed. Exam Date: October 16, 2023 Accession number: [id number] Bone Density: Region BMD T-score Z-score Classification AP Spine(L1-L4) 0.786 -2.4 -0.1 Osteopenia Femoral Neck (Left) 0.757 -0.8 1.2 Normal Total Hip (Left) 0.868 -0.6 1.1 Normal Femoral Neck (Right) 0.636 -1.9 0.1 Osteopenia Total Hip (Right) 0.788 -1.3 0.4 Osteopenia Total Hip Mean 0.828 -1.0 0.8 Normal World Health Organization criteria for BMD impression classify patients as: Normal (T-score at or above -1.0), Osteopenia (T-score between -1.0 and -2.5), or Osteoporosis (T-score at or below -2.5). 10-year Fracture Risk: FRAX not reported because: Treated for osteoporosis Previous Exams: Region Exam Age BMD T-score BMD Change BMD Change Date g/cm2 vs Baseline vs Previous AP Spine (L1-L4) 10/16/2023 73 0.786 -2.4 -0.057 (-6.8%) -0.031 (-3.8%) 10/16/2023 73 0.817 -2.1 -0.026 (-3.1%) 0.059 (7.8%)* 10/10/2021 71 0.758 -2.6 -0.085 (-10.0% -0.072 (-8.7%) 01/16/2018 67 0.831 -2.0 -0.012 (-1.5%) 0.015 (1.8%) 12/06/2015 65 0.816 -2.1 -0.027 (-3.2%) -0.027 (-3.2%) 12/01/2013 63 0.843 -1.9 Total Hip(Left) 10/16/2023 73 0.868 -0.6 -0.036 (-4.0%) 0.106 (14.0%)* 10/10/2021 71 0.762 -1.5 -0.142 (-15.7% -0.128 (-14.3% 01/16/2018 67 0.890 -0.4 -0.015 (-1.6%) 0.014 (1.7%) 12/06/2015 65 0.875 -0.5 -0.029 (-3.2%) -0.029 (-3.2%) 12/01/2013 63 0.904 -0.3 Total Hip(Right) 10/16/2023 73 0.788 -1.3 -0.069 (-8.0%) 0.016 (2.1%) 10/10/2021 71 0.771 -1.4 -0.085 (-9.9%) -0.092 (-10.7% 01/16/2018 67 0.864 -0.6 0.007 (0.8%)# 0.024 (2.8%) 12/06/2015 65 0.840 -0.8 -0.016 (-1.9%) -0.016 (-1.9%) 12/01/2013 63 0.856 -0.7 *Denotes significance at 95% confidence level, LSC for AP Spine = 0.022 g/cm2, LSC for Total Hip = 0.027 g/cm2 # Denotes dissimilar scan types or analysis methods Clinical Information Provided by Patient: Has had a low trauma fracture Parent has had a hip fracture Is being treated for osteoporosis Has used the following medications: Vitamin D, Calcium, BI-ANNUAL INFUSIONS Has the following medical conditions: Hysterectomy Patient maximum height was 65.5 Me
== END 2023-10-16 09:18 | disposition home or self-care (01) ==
LOC: ANHIMG 09:21
PROVIDERS: PCP Family Medicine; Visit Provider Physician Assistant
DX: M85.89 Other specified disorders of bone density and structure, multiple sites (principal); M81.0 Age-related osteoporosis without current pathological fracture
CPT/HCPCS: 77080

== ENCOUNTER 2024-01-11 07:00 | Outpatient (NON) | payer MEDICARE, SELFPAY | END 2024-01-11 07:01 | disposition home or self-care (01) | LOC: ANHLAB 01-12 07:47 | PROVIDERS: PCP Family Medicine; Visit Provider Internal Medicine Gastroenterology | DX: R19.5 Other fecal abnormalities (principal); D12.8 Benign neoplasm of rectum | CPT/HCPCS: 88305 ==

== ENCOUNTER 2024-01-11 08:39 | Day surgery (SDC) | payer MEDICARE, SELFPAY ==
[2023-09-16 10:48] VITALS: BMI 25.6
[2024-01-08 10:55] VITALS: BMI 24.2
--- NOTE | 2024-01-10 21:58 | PM.HPGS ---
History of Present Illness History of Present Illness Consent: Risks, benefits, and alternatives have been discussed and questions answered. Patient agrees to proceed with procedure. Chief complaint: Other Fecal Abnormalities Narrative: Tati Curry is a 73 year old female referred for colon cancer screening due to + Cologuard test. Review of Systems Review of Systems: All systems reviewed & are unremarkable except as noted in HPI and below PMFSH Past Medical History Medical History HLD (hyperlipidemia) Hypothyroidism Nephrolithiasis Seasonal allergies Surgical History Surgical History Cystocele History of D&C Multiple Status post cataract extraction Multiple surgeries to her eyes with loss of 30% peripheral vision on the left eye Status post hysterectomy with oophorectomy Family History Family History Mother Family history of Parkinson's disease Family history of Alzheimer's disease Father Family history of coronary artery disease Daughter Multiple sclerosis Sibling Myasthenia gravis Other Family history of multiple sclerosis Social History Social History Social History: The patient is . 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 She is a full code. She has 4 children. She is a lifelong nonsmoker. She does not use any alcohol marijuana or illicit drugs. Smoking status: Never smoker Second hand tobacco smoke exposure: No Alcohol intake: never Substance use: never Substance use type: does not use Living arrangements: alone Occupation/Education: retired Gender identity (if verbalized by the patient): Female Sexual Orientation (if Verbalized by the Patient): Straight or Heterosexual Spiritual care concerns: No Meds Home Medications and Allergies Home Medications Medication Instructions Recorded Confirmed Type calcium carbonate 600 mg-vitamin 2 cap PO DAILY 06/28/19 01/11/24 History D3 12.5 mcg (500 unit) capsule (Calcium 600 with Vitamin D3) multivitamin with [id number] 1 tablet PO DAILY 06/28/19 01/11/24 History 400 mcg-120 mg tablet (One Daily Women 50 Plus) brimonidine 0.025 % eye drops 1 drp EACH EYE BID PRN Eye 12/15/20 01/11/24 History (Lumify) Irritation pilocarpine HCl 1 % eye drops 1 drp EACH EYE BID glaucoma 12/15/20 01/11/24 History propylene glycol 0.6 % eye drops 1 drp EACH EYE BID PRN Eye 12/15/20 01/11/24 History (Systane Complete) Irritation acetaminophen 650 mg 650 mg PO Q8H PRN arthritis 10/31/21 01/11/24 History tablet,extended release atorvastatin 20 mg tablet 20 mg PO DAILY #90 tabs 01/12/23 01/11/24 Rx levothyroxine 75 mcg tablet See Rx Instructions .Route 01/12/23 01/11/24 Rx (Euthyrox) .COMPLEX #90 tabs lisinopril 30 mg tablet 30 mg PO DAILY #90 tabs 01/12/23 01/11/24 Rx Allergies Allergy/AdvReac Type Severity Reaction Status Date / Time NSAIDS (Non-Steroidal Allergy Unknown Unknown Verified 01/11/24 09:44 Anti-Inflamma gabapentin AdvReac Drowsy Verified 01/11/24 09:44 montelukast AdvReac Dizziness Verified 01/11/24 09:44 Exam Resp: Auscultation: clear to auscultation bilaterally Cardio: Rate: regular rate Rhythm: regular rhythm GI: GI Palp: Yes Soft to palpation and No Tenderness to palpation present (GI) Assessment and Plan Assessment and plan (1) Positive colorectal cancer screening using Cologuard test: Code(s): R19.5 - Other fecal abnormalities Status: Acute Assessment and Plan: Colonoscopy with possible biopsy or polypectomy or cautery or injection of substances.
[2024-01-11 09:57] VITALS: BP 118/71; PULSE 90; RESP 18; TEMP 37.6; O2SAT 100; BMI 23.9
[2024-01-11] MEDS: LACTATED RINGERS 1,000 ML 150 ML IV CONT (10:15)
--- NOTE | 2024-01-11 10:30 | WPDANESEPPF ---
Anes - Initial Pre Proc Eval Procedure: Operation Date: 01/11/24 11:00 Proposed Procedures p Diagnostic Colonoscopy - Edward Arreguin MD Date/Time: 01/11/24 10:30 Surgeon: Edward Arreguin MD Pre Op Diagnosis: Other Fecal Abnormalities Patient Data Age: 73 Gender: F Height: 1.63 m Weight: 63.3 kg Last Vital Signs Temp 37.6 C 01/11/24 09:57 Pulse 90 01/11/24 09:57 Resp 18 01/11/24 09:57 BP 118/71 01/11/24 09:57 Pulse Ox 100 01/11/24 09:57 O2 Del Method Room Air 01/11/24 09:57 Allergies Allergy/AdvReac Type Severity Reaction Status Date / Time NSAIDS (Non-Steroidal Allergy Unknown Unknown Verified 01/11/24 09:44 Anti-Inflamma gabapentin AdvReac Drowsy Verified 01/11/24 09:44 montelukast AdvReac Dizziness Verified 01/11/24 09:44 Home Medications Medication Instructions Recorded Confirmed Type calcium carbonate 600 mg-vitamin 2 cap PO DAILY 06/28/19 01/11/24 History D3 12.5 mcg (500 unit) capsule (Calcium 600 with Vitamin D3) multivitamin with [id number] 1 tablet PO DAILY 06/28/19 01/11/24 History 400 mcg-120 mg tablet (One Daily Women 50 Plus) brimonidine 0.025 % eye drops 1 drp EACH EYE BID PRN Eye 12/15/20 01/11/24 History (Lumify) Irritation pilocarpine HCl 1 % eye drops 1 drp EACH EYE BID glaucoma 12/15/20 01/11/24 History propylene glycol 0.6 % eye drops 1 drp EACH EYE BID PRN Eye 12/15/20 01/11/24 History (Systane Complete) Irritation acetaminophen 650 mg 650 mg PO Q8H PRN arthritis 10/31/21 01/11/24 History tablet,extended release atorvastatin 20 mg tablet 20 mg PO DAILY #90 tabs 01/12/23 01/11/24 Rx levothyroxine 75 mcg tablet See Rx Instructions .Route 01/12/23 01/11/24 Rx (Euthyrox) .COMPLEX #90 tabs lisinopril 30 mg tablet 30 mg PO DAILY #90 tabs 01/12/23 01/11/24 Rx Patient hx anesthesia problems: none Family hx anesthesia problems: none Results Review: All pre-operative results and documents have been reviewed as part of the pre-operative evaluation. [facility] Past Medical History Medical History HLD (hyperlipidemia) Hypothyroidism Nephrolithiasis Seasonal allergies Surgical History Surgical History Cystocele History of D&C Multiple Status post cataract extraction Multiple surgeries to her eyes with loss of 30% peripheral vision on the left eye Status post hysterectomy with oophorectomy Family History Family History Mother Family history of Parkinson's disease Family history of Alzheimer's disease Father Family history of coronary artery disease Daughter Multiple sclerosis Sibling Myasthenia gravis Other Family history of multiple sclerosis Social History Social History Social History: The patient is . 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 She is a full code. She has 4 children. She is a lifelong nonsmoker. She does not use any alcohol marijuana or illicit drugs. Smoking status: Never smoker Second hand tobacco smoke exposure: No Alcohol intake: never Substance use: never Substance use type: does not use Living arrangements: alone Occupation/Education: retired Gender identity (if verbalized by the patient): Female Sexual Orientation (if Verbalized by the Patient): Straight or Heterosexual Spiritual care concerns: No Anes - Eval Final PreProcedure Day of Procedure 01/11/24 10:30 Patient weight: normal Heart: regular rate and rhythm Lungs: clear to auscultation Airway: Mallampati scale Neurological: alert and oriented Last oral intake: >/= 8 hours ASA classification: III Emergent: no Anesthetic plan: proceed Anesthesia type and monitoring: general GIVS and standard monitoring Results Revie
[2024-01-11 11:24] VITALS: BP 104/90; PULSE 85; RESP 20; O2SAT 100
[2024-01-11 11:34] VITALS: BP 117/69; PULSE 85; RESP 20; O2SAT 100
--- NOTE | 2024-01-11 11:37 | WPDANESPN ---
Anes - Prog Note Post-Op Date/Time: 01/11/24 11:37 Cardiovascular status: normal Respiratory status: normal Airway patency: baseline Mental status: baseline Post-Op hydration status: normal Vital Signs: Last Vital Signs Temp 37.6 C 01/11/24 09:57 Pulse 85 01/11/24 11:24 Resp 20 01/11/24 11:24 BP 104/90 01/11/24 11:24 Pulse Ox 100 01/11/24 11:24 O2 Del Method Room Air 01/11/24 11:24 Pain Score (VAS): 0 I/O: Intake & Output 01/10/24 01/11/24 01/11/24 23:59 07:59 15:59 Intake Total 300 Balance 300 Patient Feedback: Patient satisfied with anesthetic care.
[2024-01-11 11:44] VITALS: BP 125/68; PULSE 79; RESP 20; O2SAT 100
== END 2024-01-11 12:05 | disposition home or self-care (01) ==
PROVIDERS: PCP Family Medicine; Visit Provider Internal Medicine Gastroenterology
PROC: 0DJD8ZZ Inspection of Lower Intestinal Tract, Via Natural or Artificial Opening Endoscopic (ICD-10-PCS; CPT 45378; principal; 2024-01-11 11:00)
DX: Z12.11 Encounter for screening for malignant neoplasm of colon (principal); K62.1 Rectal polyp
CPT/HCPCS: 45380

== ENCOUNTER 2024-08-30 08:16 | Outpatient (CLI) | payer MEDICARE, SELFPAY ==
--- NOTE | ~2024-08-30 | MM_ITS ---
EXAMINATION: MM screening [facility] BI w tari HISTORY: Screening TECHNIQUE: Craniocaudal and mediolateral oblique 3-D tomosynthesis images were obtained and synthetic 2-D images were generated. CAD analysis was submitted and interpreted. COMPARISON: Comparison to multiple prior studies sequentially, with oldest reviewed study dated 12/31. BREAST PARENCHYMAL COMPOSITION: Not dense: There are scattered areas of fibroglandular density. FINDINGS: There is no evidence of suspicious mass, calcification, or architectural distortion to sugg est malignancy in either breast. There has been no suspicious interval change. IMPRESSION: 1. No mammographic evidence of malignancy. 2. Recommend routine screening mammography in one year. BI-RADS Category 1: Negative Reviewed, dictated and finalized at location B. NCE WHEEL FACER
--- OUTSIDE RECORDS SUMMARY | 2024-08-30 08:23 | XMS_ITS | Clinical Summary ---
Author Organization [facility] [address] Address [address] [place] [address] Care Team Providers Care Sand Mixer Name Role Phone Feliciano Montiel MD Primary Care Provider Allergies No known active allergies Surgical History Surgery Date Site/Laterality Comments OTHER SURGICAL HISTORY 1982 laparoscopy/ D & C -several OTHER SURGICAL HISTORY 1979 D&C HYSTERECTOMY 1999 Hysterectomy Medical History Medical History Date Comments Hx Other Medical 1971 Degenerated twi n Personal history of other di seases of the circulatory system History of hypertension - (A dded by TW Conv) Personal history of other di seases of the digestive system History of constipation - (A dded by TW Conv) Family History Medical History Relation Name Comments Other Brother 2 fibre neuropath y; Rheum arthritis Cousin 2 Rheumatoid a rthritis; Multiple sclerosis Daughter 3 Multiple sclerosis; Other Daughter 3 celiacs disease ; Heart attack Father 2 Myocardial infa rction; Cause of : Myocardial infarction Alzheimer's disease Mother 2 Alzheime r's Disease; Parkinsonism Mother 2 Parkinson's dis ease; Other Sister 2 myasthemia grav is; Relation Name Status Comments Brother 1 Alive Brother 2 Cousin 1 Alive Cousin 2 Daughter 1 Alive Daughter 2 Alive Daughter 3 Father 1 (Age 82) Father 2 Mother 1 Alive Mother 2 Sister 1 Alive Sister 2 Social History Tobacco Use Types Packs/Day Years Used Date Smoking Tobacco: Never Assessed Alcohol Use Standard Drinks/Week Comments No 0 (1 standard drink = 0.6 oz pur e alcohol) Comments Unknown Sex and Gender Information Value Date Recorded Sex Assigned at Not on file 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 Gender Identity Not on file Sexual Orientation Not on file Obstetrics History Last Filed Vital Signs Vital Sign Reading Time Taken Comments Blood Pressure 102/48 09/22/2012 10:00 AM CDT Pulse 71 09/22/2012 10:00 AM CDT Temperature - - Respiratory Rate - - Oxygen Saturation - - Inhaled Oxygen Concentration - - Weight 73.4 kg (161 lb 11.3 oz) 013 10:09 AM CDT Height 165.1 cm (5' 5 ) 09/21/2012 10:0 9 AM CDT Body Mass Index 26.91 09/21/2012 10:09 AM CDT Plan of Treatment Not on file [place] [address] Care Teams Sand Mixer Relationship Specialty Start Date End Date Feliciano Montiel MD [address] [place] [address] PCP - General Family Medicine 10/19/17
--- OUTSIDE RECORDS SUMMARY | 2024-08-30 08:23 | XMS_ITS | Referral Summary ---
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
== END 2024-08-30 08:17 | disposition home or self-care (01) ==
PROVIDERS: PCP Family Medicine; Visit Provider Student in an Organized Health Care Education/Training Program
DX: Z12.31 Encounter for screening mammogram for malignant neoplasm of breast (principal)
CPT/HCPCS: 77063; 77067

== ENCOUNTER 2024-11-08 15:23 | Outpatient (CLI) | payer MEDICARE, SELFPAY ==
--- NOTE | ~2024-11-08 | XR_ITS ---
[id number] 11/08/2024 15:46 Indication: Right knee pain Procedure: 2 views right knee Comparison: No prior studies for comparison. Findings: There is anatomic alignment. No fracture, subluxation or dislocation. No joint effusion. No foreign bodies. Impression: 1: No significant bone or joint abnormality. Reviewed, dictated and finalized at location A. Impression: 1: No significant bone or joint abnormality.
--- NOTE | ~2024-11-08 | XR_ITS ---
Cervical Spine: AP, lateral, open-mouth views Clinical History: Pain Findings: The normal lordotic curve is maintained. No fracture or subluxation evident. There is advan mona degenerative disc narrowing at C6-C7. There is mild to moderate degenerative disc change at the r emaining cervical levels. There is moderate to advanced facet arthropathy throughout cervical spine. Pre-vertebral soft tissues are unremarkable. Impression: Moderate to advanced degenerative spondylosis, as above. No fracture or subluxation evident. Reviewed, dictated and finalized at location M. Impression: Moderate to advanced degenerative spondylosis, as above. No fracture or subluxation evident.
== END 2024-11-08 15:24 | disposition home or self-care (01) ==
PROVIDERS: PCP Family Medicine; Visit Provider Family Medicine
DX: M47.812 Spondylosis without myelopathy or radiculopathy, cervical region (principal); M25.561 Pain in right knee
CPT/HCPCS: 72040; 73560

== ENCOUNTER → 2024-11-15 10:36 | Outpatient (REF) | payer MEDICARE, SELFPAY ==
--- OUTSIDE RECORDS SUMMARY | 2024-11-15 11:30 | XMS_ITS | Clinical Summary ---
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
--- OUTSIDE RECORDS SUMMARY | 2024-11-15 11:30 | XMS_ITS | Referral Summary ---
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
== END ==
LOC: ANHLAB 10:36
PROVIDERS: PCP Family Medicine; Visit Provider Plastic Surgery
DX: D23.61 Other benign neoplasm of skin of right upper limb, including shoulder (principal); L57.8 Other skin changes due to chronic exposure to nonionizing radiation
CPT/HCPCS: 88305